=== PATIENT | male | born 1940 | race Caucasian/White ===

== ENCOUNTER → 2024-07-16 10:59 | Outpatient (BNVA) | payer MEDICARE, SELFPAY | PROVIDERS: Referring Provider Family Medicine; Visit Provider Specialist | DX: G24.4 Idiopathic orofacial dystonia (principal); G25.81 Restless legs syndrome; L50.1 Idiopathic urticaria | CPT/HCPCS: 99204 ==

== ENCOUNTER → 2024-08-14 14:12 | Outpatient (BNVA) | payer MEDICARE, SELFPAY | PROVIDERS: PCP Family Medicine; Visit Provider Specialist | DX: G24.4 Idiopathic orofacial dystonia (principal) | CPT/HCPCS: 64612; J0585 ==

== ENCOUNTER → 2024-11-13 12:43 | Outpatient (BNVA) | payer MEDICARE, SELFPAY | PROVIDERS: PCP Family Medicine; Visit Provider Specialist | DX: G24.4 Idiopathic orofacial dystonia (principal); G25.81 Restless legs syndrome; L50.1 Idiopathic urticaria | CPT/HCPCS: 64612; 99212; J0585; J9999 ==

== ENCOUNTER → 2025-02-15 11:56 | Outpatient (BNVA) | payer MEDICARE, SELFPAY | PROVIDERS: PCP Family Medicine; Visit Provider Specialist | DX: G24.4 Idiopathic orofacial dystonia (principal); G25.81 Restless legs syndrome; L50.1 Idiopathic urticaria | CPT/HCPCS: 64612; J0585; J9999 ==

== ENCOUNTER → 2025-05-20 15:04 | Outpatient (BNVA) | payer MEDICARE, SELFPAY | PROVIDERS: PCP Family Medicine; Visit Provider Specialist | DX: G24.4 Idiopathic orofacial dystonia (principal); G25.81 Restless legs syndrome; L50.1 Idiopathic urticaria; R03.0 Elevated blood-pressure reading, without diagnosis of hypertension | CPT/HCPCS: 64612; 99213; J0585; J9999 ==